=== PATIENT | female | born 1995 | race Hispanic/Latino ===

== ENCOUNTER 2018-04-24 19:09 | Emergency (ER) | payer SELFPAY ==
[~2018-04-24] VITALS: Ht 149.9 cm; Wt 47.2 kg
[2018-04-24] MEDS ORDERED: TAMIFLU75 MG PO (19:38)
[2018-04-24] MEDS ORDERED: BROMFED DM COU118 ML PO (19:38)
== END 2018-04-24 19:48 | disposition home or self-care (01) ==
LOC: FSED 19:09
DX: R50.9 Fever, unspecified (principal); R05 Cough; J11.1 Influenza due to unidentified influenza virus with other respiratory manifestations
CPT/HCPCS: 87400; 99283

== ENCOUNTER 2020-11-15 14:15 | Emergency (ER) | payer SELFPAY ==
[~2020-11-15] VITALS: Ht 149.9 cm; Wt 50.8 kg
[~2020-11-15 14:15] MED LIST: BACTRIM DS TAB1 EACH PO; BROMFED DM COU118 ML PO; CORTISPORIN-TC10 ML OT; ONDANSETRON ODT8 MG PO; TAMIFLU75 MG PO
[2020-11-15] MEDS ORDERED: AUGMENTIN 875-1 EACH PO (15:18)
== END 2020-11-15 15:41 | disposition home or self-care (01) ==
LOC: FSED 15:10
DX: H66.92 Otitis media, unspecified, left ear (principal); H61.23 Impacted cerumen, bilateral; F17.210 Nicotine dependence, cigarettes, uncomplicated
CPT/HCPCS: 99282